=== PATIENT | female | born 1975 | race Caucasian/White ===

== ENCOUNTER 2016-11-01 16:49 | Emergency (ER) | payer OTHER ==
[2016-11-01 17:02] VITALS: BP 116/92; PULSE 87; RESP 16; TEMP 98.1; O2SAT 99
--- NOTE | 2016-11-01 17:14 | EDPHY ---
H & P Stated Complaint: L breast pain, lower back pain Time Seen by Provider: 11/01/16 17:14 Source: Patient - Personal History LMP (Females 10-55): 22-28 Days Ago Current Tetanus Diphtheria and Acellular Pertussis (TDAP): Yes Tetanus Vaccine Date: 2015 - Medical/Surgical History Hx Asthma: No Hx Chronic Respiratory Disease: No Hx Diabetes: No Hx Cardiac Disease: No Hx Renal Disease: No Hx Cirrhosis: No Hx Alcoholism: No Hx HIV/AIDS: No Hx Splenectomy or Spleen Trauma: No Other PMH: tubal ligation, c section - Social History Smoking Status: Never smoked Constitutional: Initial Vital Signs Temperature (C) 36.7 C 11/01/16 16:57 Heart Rate 87 11/01/16 16:57 Respiratory Rate 16 11/01/16 16:57 Blood Pressure 116/92 H 11/01/16 16:57 O2 Sat (%) 99 11/01/16 16:57 O2 Delivery Mode Room Air Allergies/Adverse Reactions: No Known Allergies Allergy (Unverified 11/01/16 17:02) Home Medications: Medication Instructions Recorded HYDROcodone/APAP 10/325 [Machias 1 - 2 each PO Q4-6PRN PRN #20 tab 11/01/16 10/325] Ibuprofen [Advil] 200 mg PO 11/01/16 methylPREDNISolone [Medrol Dose 1 each PO AD #1 ea 11/01/16 Pato] Medical Decision Making ED Course/Re-evaluation: CHIEF COMPLAINT: Back pain HISTORY OF PRESENT ILLNESS: The patient is a [place]-speaking 41 y/o female arriving with her complaining of episodic chest pain and low back pain for the past few months. She reports she fell in May and had chest, back, and arm pain that she went to physical therapy for. She has also been evaluated for the chest pain at [facility] and reports she had a normal EKG and is scheduled for an echocardiogram. This is the third time she's experienced this back pain. Her back pain is worse on the left side and aggravated by lifting her left leg or sneezing. She thinks her left leg feels weaker but denies difficulty walking. No incontinence or saddle anesthesia. History obtained via use of tunnel kiln firer. REVIEW OF SYSTEMS: A 10 point review of systems was performed and is negative with the exception of the elements mentioned in the history of present illness. PHYSICAL EXAM: HR, BP, O2 Sat, RR. Temp noted General Appearance: Alert, well hydrated, appropriate, and non-toxic appearing. Head: Atraumatic without scalp tenderness or obvious injury Eyes: Pupils equal, round, reactive to light and accommodation, EOMI, no trauma , no injection. Ears: Clear bilaterally, no perforation, normal landmarks Nose: Atraumatic, no rhinorrhea, clear. Throat: There is no erythema or exudates, no lesions, normal tonsils, mucus membranes moist. Neck: Supple, 2+ carotid upstroke, nontender, no lymphadenopathy. Respiratory: No retractions, no distress, no wheezes, and no accessory muscle use. Lungs are clear to auscultation bilaterally. Cardiovascular: Regular rate and rhythm, no murmurs, rubs, or gallops. Bilateral carotid, radial, dorsalis pedis, and posterior tibial pulses intact. Good capillary refill all extremities. Gastrointestinal: Abdomen is soft, nontender, non-distended, no masses, no rebound, no guarding, no peritoneal signs. Musculoskeletal: Normal active ROM of all extremities, atraumatic. Some left leg pain with straight-leg raise. Neurological: Alert, appropriate, and interactive. The patient has normal DTRs and non-focal cranial nerves, motor, sensory, and cerebellar exam. Normal plantar flexion. 5/5 strength lower extremities. Skin: No rashes, good turgor, no nodules on palpation. Past medical history: Denies Past surgical history: Denies Family history: Noncontributory Social history: at bedside. patient at [facility] DIFFERENTIAL DIAGNOSIS: The differential diagnosis for the patient's back pain included but was not limited to lumbar radiculopathy, musculo-skeletal pain , epidural abscess, herniated disk, spinal fracture, and intra-abdominal causes including urinary system. MEDICAL DECISION MAKING: This is a healthy 41 y/o female presenting with a 5+ month history of back and chest pain secondary to a fall in May. Her back pain initially resolved with PT but then returned in September. It sounds like she's been having difficulty getting appropriate follow up through [facility]. She has had a chest x- ray and EKG for her intermittent chest pain and is scheduled for an echo sometime soon. Her lumbar pain is aggravated with straight-leg test and is worse on the left side. She has normal anterior tibialis pulses and normal plantar flexion. She is neurovascularly intact. She has no evidence of acute cauda equina syndrome. She likely has lumbar radiculopathy. She will be discharged with Machias and a Medrol pack and a referral to neurosurgery for follow up. We will also involve case management to help her get her to her follow up appointment at [facility]. Departure - Departure Disposition: Home, Routine, Self-Care Clinical Impression: Lumbar radiculopathy, left Condition: Good Instructions: Lumbar Radiculopathy (ED) Additional Instructions: 1. Take 600mg ibuprofen 3 times daily for the next 1-2 weeks. 2. Use Medrol dose pack as prescribed. Be sure to complete the entire prescription. 3. Take Machias as prescribed for pain not controlled by ibuprofen. 4. Follow up with Dr. Mata, neurosurgeon, on Thursday. 5. Return to the ED for inability to walk, urinary or bowel incontinence, numbness around your genitals, or other worsening of condition. Referrals: Keren Gao PA [Primary Care Provider] - As per Instructions Cristian Mata MD [Medical Doctor] - As per Instructions Prescriptions: methylPREDNISolone [Medrol Dose Pato] 1 each PO AD #1 ea HYDROcodone/APAP 10/325 [Machias 10/325] 1 - 2 each PO Q4-6PRN PRN #20 tab PRN Reason: Pain, Moderate Report Scribed for: Michael Gannon Report Scribed by: Antonette Wilson Date of Report: 11/01/16 Time of Report: 17:31
[2016-11-01] MEDS ORDERED: HYDROCOD/APAP 5/325 PREPACK#6 BTL TAKEHOME ONE (17:45)
== END 2016-11-01 17:50 | disposition home or self-care (01) ==
DX: M54.16 Radiculopathy, lumbar region (principal)